=== PATIENT | female | born 1945 | race Caucasian/White ===

== ENCOUNTER → 2017-08-12 | Outpatient (CLI) | payer BC, MEDICARE ==
[~2017-08-12] MED LIST: HYDR-3874 PO; NITR-65 PO; NITR100C3 PO; OXYC-103 PO; PHEN-640 PO; PHEN200T27 PO; TMSL.4C PO
== END ==
LOC: PREOP 11:09
PROVIDERS: ATTEND Urology
DX: Z01.818 Encounter for other preprocedural examination (principal); N20.1 Calculus of ureter

== ENCOUNTER 2017-08-15 07:03 | Day surgery (SDC) | payer BC, MEDICARE ==
[~2017-08-15] VITALS: Ht 162.6 cm; Wt 65.8 kg
[~2017-08-15 07:03] MED LIST changes: -HYDR-3874 PO; -NITR-65 PO; -PHEN-640 PO
--- NOTE | 2017-08-15 07:03 | Progress Note-Pre Operative ---
Pre-Operative Progress Note H&P Reviewed The H&P was reviewed, patient examined and no changes noted. Date Seen by Provider: Aug 15, 2017 Time Seen by Provider: 07:03 Date H&P Reviewed: Aug 15, 2017 Time H&P Reviewed: 07:03 Pre-Operative Diagnosis: RT URETERAL STONE DENTON LARA MD Aug 15, 2017 7:03 am
[2017-08-15] MEDS ORDERED: fentaNYL INJECTION 100 MCG/2 ML AMP ONE (07:12)
[2017-08-15] MEDS ORDERED: MIDAZOLAM 2 MG/2 ML (VERSED) VIAL ONE (07:13)
[2017-08-15] MEDS ORDERED: D5W 50 ML IVPB SOLUTION 50 ML IV ONE (07:18)
[2017-08-15 07:20] VITALS: BP 136/70
[2017-08-15] MEDS: LACTATED RINGERS 1,000 ML IV PRN ×2 (07:20→08:10)
[2017-08-15] MEDS: cefTRIAXone 1 GM (ROCEPHIN) VIAL ONE (07:30)
[2017-08-15] MEDS ORDERED: SEVOFLURANE (ULTANE) 15 ML INHAL SOLN ONE (07:48)
[2017-08-15] MEDS ORDERED: LIDOCAINE PF 2% 5 ML (XYLOCAINE) VIAL ONE (07:48)
[2017-08-15] MEDS ORDERED: DEXAMETHASONE 10 MG/ML (DECADRON) 1 ML VIAL ONE (07:48)
[2017-08-15] MEDS ORDERED: proPOfol 200 MG/20 ML (DIPRIVAN) VIAL IV ONE (07:48)
[2017-08-15] MEDS ORDERED: ONDANSETRON 4 MG/2 ML (SDV) Z0FRAN ONE (07:48)
--- NOTE | 2017-08-15 07:56 | Progress Note-Post Operative ---
Post-Operative Progess Note Surgeon (s)/Crusher (s) Surgeon DENTON LARA MD Crusher: N/A Pre-Operative Diagnosis RT URETERAL STONE Post-Operative Diagnosis SAME Procedure & Operative Findings Date of Procedure 08/15/17 Procedure Performed/Findings RT URETEROSCOPY WITH STONE LITHOTRIPSY Anesthesia Type GENERAL Estimated Blood Loss Estimated blood loss (mL): N/A Specimens/Packing Specimens Removed N/A Packing: N/A DENTON LARA MD Aug 15, 2017 7:56 am
--- NOTE | 2017-08-15 07:58 | Discharge Inst-Urology ---
Discharge Inst-Urology Patient Instructions/Follow Up Plan Please make appointment to been seen in office in 2 weeks. Increase oral fluids for 48 hours and then as needed. Diet and Activity as tolerated. If questions or concerns contact your physician Or seek help at emergency department. DENTON LARA MD Aug 15, 2017 7:58 am
[2017-08-15] MEDS ORDERED: PHENYLEPHRINE 0.25% NASAL SPR (NEO-SYNEPHRINE) 15 ML NS ONE (08:00)
[2017-08-15] MEDS ORDERED: cefTRIAXone INJECTION 1,000 MG in D5W 50 ML IVPB SOLUTION 50 ML IV ONE (08:00)
[2017-08-15] MEDS ORDERED: ONDANSETRON 4 MG/2 ML (SDV) Z0FRAN IVP PRN (08:30)
[2017-08-15] MEDS ORDERED: morphine INJ 10 MG/ML 1ML (SYR OR VIAL) IVP PRN (08:30)
[2017-08-15 08:48] VITALS: BP 128/67
--- NOTE | 2017-08-15 09:08 | OPERATIVE REPORT ---
DATE OF SERVICE: 08/15/2017 PREOPERATIVE DIAGNOSIS: Right distal ureteral stone. POSTOPERATIVE DIAGNOSIS: Right distal ureteral stone. OPERATION PERFORMED: Right ureteroscopy with stone lithotripsy. SURGEON: Jonathan Lara MD ANESTHESIA: General. COMPLICATIONS: None. PROCEDURE: Under satisfactory general anesthesia, the patient in lithotomy position, genitalia were prepped and draped in the usual sterile fashion. Cystoscope was introduced in the bladder. Bladder was completely normal. There was some vaginal prolapse. There was a sluggish efflux on the right side. Using the foroblique a foroblique lens, I dilated the right ureteral orifice intramural portion to accommodate the 6.9-German semi-rigid ureteroscope, visualized the stone that was floating in the ureter. I went ahead using the power of 5 on the LithoClast completely fragmented the stone into very small fragments. I went beyond the stone proximally, there was no further calcifications. I removed the ureteroscope, reinserted the cystoscope and emptied the bladder. The patient tolerated the procedure and anesthesia well and was sent to recovery room in stable condition. Job ID: [id number] DocumentID: [id number] Dictated Date: 08/15/2017 08:00:44 Centrifugal Spinner Date: 08/15/2017 09:07:29 Dictated By: JONATHAN LARA MD
[2017-08-15 09:20] VITALS: BP 146/58
[2017-08-15] MEDS ORDERED: HYDR-3874 PO (09:45)
[2017-08-15] MEDS ORDERED: PHEN-640 PO (09:45)
[2017-08-15] MEDS ORDERED: NITR-65 PO (09:45)
[2017-08-15 09:50] VITALS: BP 146/58
--- NOTE | 2017-08-15 10:46 | Diagnostic Imaging Report ---
INDICATION: Lithotripsy. IMPRESSION: Fluoroscopy was provided during performance of a lithotripsy. 19 seconds of fluoroscopic time was utilized. No images were obtained. Dictated by: Dictated on workstation # [id number]
== END 2017-08-15 09:56 | disposition home or self-care (01) ==
LOC: SDC 07:03
PROVIDERS: ATTEND Urology
DX: N20.1 Calculus of ureter (principal); Z11.2 Encounter for screening for other bacterial diseases; I10 Essential (primary) hypertension; Z88.0 Allergy status to penicillin; Z79.899 Other long term (current) drug therapy
CPT/HCPCS: 87081

== ENCOUNTER 2019-02-16 11:53 | Emergency (ER) | payer BC, MEDICARE ==
[~2019-02-16] VITALS: Ht 162.6 cm; Wt 64.4 kg
[~2019-02-16 11:53] MED LIST changes: +HYDR-3870 PO; +NITR-65 PO; +PHEN-640 PO
--- OUTSIDE RECORDS SUMMARY | 2019-02-16 12:22 | XMS REPORT | Clinical Summary ---
Author Author [facility] Organization [facility] Address Unknown Phone Unavailable Care Team Providers Care Tax Examining Technician Name Role Phone Jessi Neal MD PCP Source Comments Some departments are not documenting in the electronic medical record. If you d o not see the information that you expected, contact Release of Information in [facility] [place] Information Management department at [phone] for further assistan ce in locating additional records.[facility] Allergies Comments Active Allergy Reactions Severity Noted Date Penicillins RASH Medium 09/21/2017 Medications End Date Status Medication Sig Dispensed Refills Start Date Active tamsulosin (FLOMAX) 0.4 Take 0.4 mg 0 mg capsule by mouth daily. Do not crush, chew or open capsules. Take 30 minutes following the same meal each day. Active hydroCHLOROthiazide Take 12.5 mg 0 (HYDRODIURIL) 12.5 mg by mouth capsule every morning. Active Problems Problem Noted Date Pulmonary nodule 09/22/2017 Social History Date Tobacco Use Types Packs/Day Years Used Former Smoker Smokeless Tobacco: Never Used Sex Assigned at Date Recorded Not on file Industry Job Start Date Occupation Not on file Not on file Not on file Travel End Travel History Travel Start No recent travel history available. Last Filed Vital Signs Reading Time Taken Comments Vital Sign 141/87 09/21/2017 1:22 PM EVP Blood Pressure 78 09/21/2017 1:22 PM EVP Pulse 36.7 C (98 F) 09/21/2017 1:22 PM EVP Temperature 16 09/21/2017 1:22 PM EVP Respiratory Rate 97% 09/21/2017 1:22 PM EVP ra Oxygen Saturation - - Inhaled Oxygen Concentration 66.7 kg (147 lb) 09/21/2017 1:22 PM EVP Weight 162.6 cm (5' 4") 09/21/2017 1:22 PM EVP Height 25.23 09/21/2017 1:22 PM EVP Body Mass Index Plan of Treatment Health Maintenance Due Date Last Done Comments HEPATITIS C SCREENING 1945 PHYSICAL (COMPREHENSIVE) 1954 EXAM DTAP/TDAP VACCINES (1 - 1965 Tdap) BREAST CANCER SCREENING 1987 COLORECTAL CANCER 1997 SCREENING SHINGLES RECOMBINANT 1997 VACCINE (1 of 2) OSTEOPOROSIS 2012 SCREENING/MONITORING PNEUMONIA (PCV13/PPSV23) 2012 VACCINES (1 of 2 - PCV13) INFLUENZA VACCINE 04/17/2019 Results Not on filefrom Last 3 Months Insurance Type Payer Benefit Subscriber ID Effective Phone Address Plan / Dates Group PPO BCBS RAPHAEL BCBS RAPHAEL xxxxxxxxx 2015- FED EMP Present PROGRAM Advance Directives Patient Supervisor Crack Off Explanation Type Date Recorded Advance Directive/DPOA
--- OUTSIDE RECORDS SUMMARY | 2019-02-16 12:22 | XMS REPORT | Continuity of Care Document ---
Author Organization Unknown Address Unknown Phone Unavailable Allergies Active Description Code Type Severity Reaction Onset Reported/Identified Relationship to Patient Clinical Status Yes Penicillins [id number] Drug Allergy Unknown HIVES 02/06/2014 Medications There is no data. 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 08/15/2017 DENTON LARA MD Ot Z88.0 ALLERGY STATUS TO PENICILLIN 08/15/2017 DENTON LARA MD Ot N20.1 CALCULUS OF URETER 08/15/2017 DENTON LARA MD Ot Z01.818 ENCOUNTER FOR OTHER PREPROCEDURAL EXAMIN 08/16/2017 DENTON LARA MD Ot I10 ESSENTIAL (PRIMARY) HYPERTENSION 08/16/2017 DENTON LARA MD Ot N20.1 CALCULUS OF URETER 08/16/2017 DENTON LARA MD Ot Z11.2 ENCOUNTER FOR SCREENING FOR OTHER BACTER 08/16/2017 DENTON LARA MD Ot 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 08/16/2017 DENTON LARA MD Ot Z88.0 ALLERGY STATUS TO PENICILLIN 08/16/2017 DENTON LARA MD Ot I10 ESSENTIAL (PRIMARY) HYPERTENSION 08/16/2017 DENTON LARA MD Ot N20.1 CALCULUS OF URETER 08/16/2017 DENTON LARA MD Ot Z11.2 ENCOUNTER FOR SCREENING FOR OTHER BACTER 08/16/2017 DENTON LARA MD Ot 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 08/16/2017 DENTON LARA MD Ot Z88.0 ALLERGY STATUS TO PENICILLIN 08/17/2017 DENTON LARA MD Ot N20.1 CALCULUS OF URETER 08/17/2017 DENTON LARA MD Ot Z01.818 ENCOUNTER FOR OTHER PREPROCEDURAL EXAMIN 08/17/2017 DENTON LARA MD Ot N20.1 CALCULUS OF URETER 08/17/2017 DENTON LARA MD Ot Z01.818 ENCOUNTER FOR OTHER PREPROCEDURAL EXAMIN 08/17/2017 DENTON LARA MD Ot I10 ESSENTIAL (PRIMARY) HYPERTENSION 08/17/2017 DENTON LARA MD Ot N20.1 CALCULUS OF URETER 08/17/2017 DENTON LARA MD Ot Z11.2 ENCOUNTER FOR SCREENING FOR OTHER BACTER 08/17/2017 DENTON LARA MD Ot 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 08/17/2017 DENTON LARA MD Ot Z88.0 ALLERGY STATUS TO PENICILLIN 08/17/2017 DENTON LARA MD Ot I10 ESSENTIAL (PRIMARY) HYPERTENSION 08/17/2017 DENTON LARA MD Ot N20.1 CALCULUS OF URETER 08/17/2017 DENTON LARA MD Ot Z11.2 ENCOUNTER FOR SCREENING FOR OTHER BACTER 08/17/2017 DENTON LARA MD Ot Z79.899 OTHER SHELTER (CURRENT) DRUG THERAPY 08/17/2017 DENTON LARA MD Ot Z88.0 ALLERGY STATUS TO PENICILLIN 08/21/2017 DENTON LARA MD Ot I10 ESSENTIAL (PRIMARY) HYPERTENSION 08/21/2017 DENTON LARA MD Ot N20.1 CALCULUS OF URETER 08/21/2017 DENTON LARA MD Ot Z11.2 ENCOUNTER FOR SCREENING FOR OTHER BACTER 08/21/2017 DENTON LARA MD Ot Z79.899 OTHER SHELTER (CURRENT) DRUG THERAPY 08/21/2017 DENTON LARA MD Ot Z88.0 ALLERGY STATUS TO PENICILLIN 04/19/2018 DENTON LARA MD Ot 592.1 CALCULUS OF URETER 04/19/2018 DENTON LARA MD Ot V72.84 EXAM PRE-OPERATIVE NOS 04/19/2018 DENTON LARA MD Ot N20.1 CALCULUS OF URETER 04/19/2018 DENTON LARA MD Ot Z01.818 ENCOUNTER FOR OTHER PREPROCEDURAL EXAMIN Procedures There is no data. Results Test Result Range Methicillin resistant Staphylococcus aureus (MRSA) screening culture - 08/15/17 07:15 Methicillin resistant Staphylococcus aureus (MRSA) screening culture NEG NRG Encounters ACCT No. Visit Date/Time Discharge Status Pt. Type Provider Facility Loc./Unit Complaint [id number] 08/15/2017 07:03:00 08/15/2017 09:56:00 DIS Outpatient DENTON LARA MD Via [facility] RIGHT URETERAL STONE [id number] 08/12/2017 11:09:00 08/12/2017 23:59:59 CLS Outpatient DENTON LARA MD Via [facility] PREOP RIGHT URETERAL STONE [id number] 02/06/2014 09:05:00 02/06/2014 13:10:00 DIS Outpatient DENTON LARA MD [facility] LEFT URETERAL STONE [id number] 02/04/2014 09:15:00 02/04/2014 23:59:59 CLS Outpatient DENTON LARA MD [facility] PRE[facility] LEFT URETERAL STONE
[2019-02-16 12:38] LABS: BASOPHILS # (AUTO) 0.1 10^3/uL (0.0-0.1); BASOPHILS % (AUTO) 1 % (0-10); EOSINOPHILS # (AUTO) 0.1 10^3/uL (0.0-0.3); EOSINOPHILS % (AUTO) 2 % (0-10); HEMATOCRIT 31 % (35-52); HEMOGLOBIN 10.7 G/DL (11.5-16.0); LYMPHOCYTES # (AUTO) 1.4 X 10^3 (1.0-4.0); LYMPHOCYTES % (AUTO) 28 % (12-44); MEAN CORPUSCULAR HEMOGLOBIN 31 PG (25-34); MEAN CORPUSCULAR HGB CONC 34 G/DL (32-36); MEAN CORPUSCULAR VOLUME 91 FL (80-99); MONOCYTES # (AUTO) 0.6 X 10^3 (0.0-1.0); MONOCYTES % (AUTO) 13 % (0-12); NEUTROPHILS # (AUTO) 2.8 X 10^3 (1.8-7.8); NEUTROPHILS % (AUTO) 55 % (42-75); PLATELET COUNT 253 10^3/uL (130-400); RED CELL DISTRIBUTION WIDTH 12.6 % (10.0-14.5); WHITE BLOOD COUNT 5.1 10^3/uL (4.3-11.0)
[2019-02-16 12:47] LABS: BILIRUBIN,URINE NEGATIVE (NEGATIVE); CLARITY,URINE CLEAR; COLOR,URINE YELLOW; GLUCOSE, URINE (UA) NEGATIVE (NEGATIVE); KETONES,URINE NEGATIVE (NEGATIVE); LEUKOCYTE ESTERASE ,URINE NEGATIVE (NEGATIVE); NITRITE,URINE NEGATIVE (NEGATIVE); PROTEIN,URINE NEGATIVE (NEGATIVE); UROBILINOGEN,URINE 0.2 MG/DL (NORMAL)
[2019-02-16 12:48] LABS: ALANINE AMINOTRANSFERASE 16 U/L (0-55); ALBUMIN 4.3 GM/DL (3.2-4.5); ALKALINE PHOSPHATASE 56 U/L (40-136); BILIRUBIN,TOTAL 0.6 MG/DL (0.1-1.0); BUN/CREATININE RATIO 31; CALCIUM 8.7 MG/DL (8.5-10.1); CARBON DIOXIDE 23 MMOL/L (21-32); CHLORIDE 103 MMOL/L (98-107); CREATININE SERUM 0.48 MG/DL (0.60-1.30); GFR ESTIMATED > 60; GLUCOSE 106 MG/DL (70-105); POTASSIUM 3.6 MMOL/L (3.6-5.0); SODIUM 140 MMOL/L (135-145); TOTAL PROTEIN 6.3 GM/DL (6.4-8.2)
[2019-02-16 13:20] VITALS: BP_SYST 110; BP_SYST 111; BP_SYST 129; BP_DIAS 51; BP_DIAS 53; BP_DIAS 56
--- NOTE | 2019-02-16 13:24 | ED Abdominal Pain ---
General Chief Complaint: Abdominal/GI Problems Stated Complaint: EPIGASTRIC PAIN; BLACK STOOL Nursing Triage Note: Patient sent over from urgent care for further evaluation. C/O black tarry stools and epigastric/abdominal pain since Tuesday. Sepsis Screen: No Definite Risk Source of Information: Patient Exam Limitations: No Limitations History of Present Illness Date Seen by Provider: Feb 16, 2019 Time Seen by Provider: 13:19 Initial Comments The patient is a 73-year-old white female who presents with complaints of epigastric pain and black tarry stools since Tuesday. She has no previous history of ulcer disease. She reports that at this time she has a bit of light headedness when she first stands up. There has been no vomiting of blood and no black diarrhea. We were able to find a hemoglobin from 2017 which was 14. Today's hemoglobin was 10.7. She is active and continues to work presently for the [employer]. 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 Timing/Duration: 3-4 Days Severity/Quality: Mild Location: Epigastric Radiation: No Radiation Activities at Onset: None Allergies and Home Medications Allergies Coded Allergies: Penicillins (Verified Allergy, Unknown, HIVES, 02/06/14) Home Medications Hydrocodone/Acetaminophen 1 Each Tablet, 1-2 EACH PO Q4H PRN for PAIN Prescribed by: DANTE PEDRAZA on 08/15/17944 Nitrofurantoin Monohyd/M-Cryst 100 Mg Capsule, 1 TAB PO BID WITH MEALS Prescribed by: DANTE PEDRAZA on 08/15/17944 Phenazopyridine HCl 200 Mg Tablet, 1 TAB PO TID Prescribed by: DANTE PEDRAZA on 08/15/17944 Patient Home Medication List Home Medication List Reviewed: Yes Review of Systems Review of Systems Constitutional: see HPI EENTM: No Symptoms Reported Respiratory: No Symptoms Reported Cardiovascular: No Symptoms Reported Gastrointestinal: See HPI Genitourinary: No Symptoms Reported Musculoskeletal: no symptoms reported Skin: no symptoms reported Psychiatric/Neurological: No Symptoms Reported Endocrine: No Symptoms Reported Hematologic/Lymphatic: No Symptoms Reported Past Bypkkwm-Evnkto-Czsdmf Hx Patient Social History Alcohol Use: Denies Use Recreational Drug Use: No Smoking Status: Never a Smoker 2nd Hand Smoke Exposure: No Recent Foreign Travel: No Contact w/Someone Who Travel: No Recent Infectious Disease Expo: No Recent Hopitalizations: No Physical Abuse: No Sexual Abuse: No Mistreated: No Fear: No Immunizations Up To Date Date of Pneumonia Vaccine: Jul 18, 2008 Seasonal Allergies Seasonal Allergies: No Past Medical History Surgeries: Yes (BLADDER SLING, Lithotripsy) Section, Gallbladder, Hysterectomy Respiratory: No Cardiac: No Neurological: No Genitourinary: Yes Kidney Stones Gastrointestinal: No Musculoskeletal: No Endocrine: No HEENT: No Cancer: No Psychosocial: No Integumentary: No Blood Disorders: No Physical Exam Vital Signs Vital Signs - First Documented 02/16/19 12:20 Temp 97.9 Pulse 70 Resp 20 B/P (MAP) 132/58 (82) Pulse Ox 98 O2 Delivery Room Air Capillary Refill : Less Than 3 Seconds Height/Weight/BMI Height: 5'4.00" Weight: 142lbs. 1.0oz. 64.615532gf; 24.9 BMI Method:Stated General Appearance: WD/WN, no apparent distress HEENT: PERRL/EOMI, normal ENT inspection, TMs normal, pharynx normal Neck: non-tender, full range of motion, supple, normal inspection Respiratory: chest non-tender, lungs clear, normal breath sounds, no respiratory distress, no accessory muscle use Cardiovascular: normal peripheral pulses, regular rate, rhythm, no edema, no gallop, no JVD, no murmur Gastrointestinal: normal bowel sounds, non tender, soft, no organomegaly, no pulsatile mass Extremities: normal range of motion, non-tender, normal inspection, no pedal edema, no calf tenderness, normal capillary refill, pelvis stable Pelvic: normal external exam, normal adnexa, no cerv. motion tender, no masses, discharge Neurologic/Psychiatric: community manager II-XII nml as tested, no motor/sensory deficits, alert, normal mood/affect, oriented x 3 Skin: normal color, warm/dry Lymphatic: no adenopathy Progress/Results/Core Measures Results/Orders Lab Results Laboratory Tests Test 02/16/19 12:20 Range/Units White Blood Count 5.1 4.3-11.0 10^3/uL Red Blood Count 3.45 L 4.35-5.85 10^6/uL Hemoglobin 10.7 L 11.5-16.0 G/DL Hematocrit 31 L 35-52 % Mean Corpuscular Volume 91 80-99 FL Mean Corpuscular Hemoglobin 31 25-34 PG Mean Corpuscular Hemoglobin Concent 34 32-36 G/DL Red Cell Distribution Width 12.6 10.0-14.5 % Platelet Count 253 130-400 10^3/uL Mean Platelet Volume 11.0 H 7.4-10.4 FL Neutrophils (%) (Auto) 55 42-75 % Lymphocytes (%) (Auto) 28 12-44 % Monocytes (%) (Auto) 13 H 0-12 % Eosinophils (%) (Auto) 2 0-10 % Basophils (%) (Auto) 1 0-10 % Neutrophils # (Auto) 2.8 1.8-7.8 X 10^3 Lymphocytes # (Auto) 1.4 1.0-4.0 X 10^3 Monocytes # (Auto) 0.6 0.0-1.0 X 10^3 Eosinophils # (Auto) 0.1 0.0-0.3 10^3/uL Basophils # (Auto) 0.1 0.0-0.1 10^3/uL Urine Color YELLOW Urine Clarity CLEAR Urine pH 7.0 5-9 Urine Specific Coulter 1.010 L 1.016-1.022 Urine Protein NEGATIVE NEGATIVE Urine Glucose (UA) NEGATIVE NEGATIVE Urine Ketones NEGATIVE NEGATIVE Urine Nitrite NEGATIVE NEGATIVE Urine Bilirubin NEGATIVE NEGATIVE Urine Urobilinogen 0.2 NORMAL MG/DL Urine Leukocyte Esterase NEGATIVE NEGATIVE Urine RBC (Auto) NEGATIVE NEGATIVE Urine RBC NONE /HPF Urine WBC 2-5 /HPF Urine Squamous Epithelial Cells 2-5 /HPF Urine Crystals NONE /LPF Urine Bacteria NONE /HPF Urine Casts NONE /LPF Urine Mucus NEGATIVE /LPF Urine Culture Indicated NO Sodium Level 140 135-145 MMOL/L Potassium Level 3.6 3.6-5.0 MMOL/L Chloride Level 103 98-107 MMOL/L Carbon Dioxide Level 23 21-32 MMOL/L Anion Gap 14 5-14 MMOL/L Blood Urea Nitrogen 15 7-18 MG/DL Creatinine 0.48 L 0.60-1.30 MG/DL Estimat Glomerular Filtration Rate > 60 BUN/Creatinine Ratio 31 Glucose Level 106 H 70-105 MG/DL Calcium Level 8.7 8.5-10.1 MG/DL Corrected Calcium 8.5 8.5-10.1 MG/DL Total Bilirubin 0.6 0.1-1.0 MG/DL Aspartate Amino Transf (AST/SGOT) 17 5-34 U/L Alanine Aminotransferase (ALT/SGPT) 16 0-55 U/L Alkaline Phosphatase 56 40-136 U/L Total Protein 6.3 L 6.4-8.2 GM/DL Albumin 4.3 3.2-4.5 GM/DL My Orders Orders - PIERCE ARNETT MD Cbc With Automated Diff (02/16/19 12:04) Comprehensive Metabolic Panel (02/16/19 12:04) Urinalysis (02/16/19 12:04) Ed Iv/Invasive Line Start (02/16/19 12:20) Vital Signs/I&O 02/16/19 12:20 Temp 97.9 Pulse 70 Resp 20 B/P (MAP) 132/58 (82) Pulse Ox 98 O2 Delivery Room Air Blood Pressure Mean: 82 Departure Communication (Admissions) Had a long discussion with the patient relative to the blood count and the high likelihood of a bleeding ulcer in the upper GI tract. She is reasonably sophisticated about medical issues. She is not eager to be admitted at this time. I discussed at some length symptoms and at least the relative drop in hemoglobin. The plan that she would prefer involves the initiation of PPIs. In addition she was cautioned that the symptoms would be more volume and frequency of stools and the increase in lightheadedness when she would stand up. If these were to occur she should return here immediately. Finally she should return here tomorrow for a repeat CBC. 1340 discussed the patient with Dr. Cardona by phone. She will follow the rules put forth in her discharge sequence. Impression Primary Impression: upper GI bleed Additional Impression: Upper GI bleed Disposition: 01 HOME, SELF-CARE Condition: Stable/Unchanged Departure-Patient Inst. Decision time for Depature: 13:42 Referrals: WALLY ASCENCIO MD (PCP/Family) Primary Care Physician Patient Instructions: No Instuctions Given Add. Discharge Instructions: All discharge instructions reviewed with patient and/or family. Voiced understanding. Discussed her case with Dr. Shayne Cardona who is the surgeon on-call this weekend. You will be given 2 medications for ulcer disease. These are to be started today. Return here tomorrow for a blood count. If your symptoms increase with more stools and increasing lightheadedness return to the [place] emergency room. Assuming that we make it to Tuesday call Dr. Cardona's office at [phone] and informed them that you have been instructed to see him Tuesday afternoon as a work-in Scripts Sucralfate (Carafate) 1 Gm/10 Ml Oral.susp 1 GM PO 3 times a day, #200 ML Prov: PIERCE ARNETT MD 02/16/19 Pantoprazole Sodium (Protonix) 40 Mg Tablet.dr 40 MG PO twice a day, #30 TAB Prov: PIERCE ARNETT MD 02/16/19 PIERCE ARNETT MD Feb 16, 2019 13:24
[2019-02-16] MEDS ORDERED: SUCR1ORA5 PO ×2 (13:46→14:08)
[2019-02-16] MEDS ORDERED: PANT40TA2 PO ×2 (13:46→14:08)
[2019-02-16 14:07] VITALS: BP 112/53
== END 2019-02-16 14:06 | disposition home or self-care (01) ==
LOC: EDUNIT# 11:53 → ER FS 11:55
DX: K92.2 Gastrointestinal hemorrhage, unspecified (principal); Z88.0 Allergy status to penicillin; Z90.710 Acquired absence of both cervix and uterus; Z87.442 Personal history of urinary calculi
CPT/HCPCS: 36415; 80053; 81000; 85025

== ENCOUNTER → 2019-02-17 | Outpatient (CLI) | payer BC, MEDICARE ==
[~2019-02-17] MED LIST changes: +PANT40TA2 PO; +SUCR1ORA5 PO
[2019-02-17 13:14] LABS: HEMATOCRIT 31 % (35-52); HEMOGLOBIN 10.6 G/DL (11.5-16.0); LYMPHOCYTES % (AUTO) 26 % (12-44); MEAN CORPUSCULAR HEMOGLOBIN 31 PG (25-34); MEAN CORPUSCULAR HGB CONC 34 G/DL (32-36); MEAN CORPUSCULAR VOLUME 92 FL (80-99); MEAN PLATELET VOLUME 10.6 FL (7.4-10.4); MONOCYTES % (AUTO) 14 % (0-12); NEUTROPHILS % (AUTO) 56 % (42-75); PLATELET COUNT 286 10^3/uL (130-400); RED CELL DISTRIBUTION WIDTH 12.8 % (10.0-14.5); WHITE BLOOD COUNT 5.7 10^3/uL (4.3-11.0)
[2019-02-17 13:15] LABS: BASOPHILS # (AUTO) 0.1 10^3/uL (0.0-0.1); BASOPHILS % (AUTO) 1 % (0-10); EOSINOPHILS # (AUTO) 0.2 10^3/uL (0.0-0.3); EOSINOPHILS % (AUTO) 3 % (0-10); LYMPHOCYTES # (AUTO) 1.5 X 10^3 (1.0-4.0); MONOCYTES # (AUTO) 0.8 X 10^3 (0.0-1.0); NEUTROPHILS # (AUTO) 3.2 X 10^3 (1.8-7.8)
== END ==
LOC: LAB FS 12:57
PROVIDERS: ATTEND Internal Medicine
DX: K92.2 Gastrointestinal hemorrhage, unspecified (principal)
CPT/HCPCS: 36415; 85025

== ENCOUNTER → 2019-02-23 | Outpatient (CLI) | payer BC, MEDICARE ==
--- NOTE | 2019-02-23 13:38 | Diagnostic Imaging Report ---
REASON FOR EXAM: HISTORY OF STONES COMPARISON: 02/06/2014. TECHNIQUE: Frontal supine views of the abdomen FINDINGS: The bowel gas pattern is nondistended. No large collection of free intraperitoneal air is seen. A bonrdjzl-cm-fxwsp amount of gas and fecal material are present in the colon. Possible focal calcification is seen in the inferior pole of the left kidney measuring approximately 3 mm. The osseous structures are age-appropriate. IMPRESSION: 1. Possible nonobstructing nephrolithiasis in the inferior pole of the left kidney measuring 3 mm. 2. Cjyqflnt-ws-oslni amount of stool in the colon, which can be seen with constipation. 3. No evidence of bowel obstruction or large collection of free intraperitoneal air. Dictated by: Dictated on workstation # [id number]
[2019-02-23 14:37] LABS: BUN/CREATININE RATIO 21; CALCIUM 9.3 MG/DL (8.5-10.1); CARBON DIOXIDE 27 MMOL/L (21-32); CHLORIDE 102 MMOL/L (98-107); CREATININE SERUM 0.72 MG/DL (0.60-1.30); GFR ESTIMATED > 60; GLUCOSE 140 MG/DL (70-105); POTASSIUM 3.4 MMOL/L (3.6-5.0); SODIUM 140 MMOL/L (135-145)
[2019-02-23 15:09] LABS: PHOSPHORUS 3.9 MG/DL (2.3-4.7); URIC ACID 3.5 MG/DL (2.6-7.2)
== END ==
LOC: LAB FS 13:12
PROVIDERS: ATTEND Urology
DX: Z87.442 Personal history of urinary calculi (principal)
CPT/HCPCS: 36415; 74018; 80048; 84100; 84550

== ENCOUNTER → 2019-03-20 | Outpatient (CLI) | payer BC, MEDICARE | LOC: PREOP 05:35 | PROVIDERS: ATTEND Surgery | DX: Z01.818 Encounter for other preprocedural examination (principal); K21.9 Gastro-esophageal reflux disease without esophagitis ==

== ENCOUNTER 2019-03-26 07:02 | Day surgery (SDC) | payer BC, MEDICARE ==
[2019-03-26] VITALS (7 sets, daily range): BP systolic 87–144; BP diastolic 49–77
[~2019-03-26] VITALS: Ht 162.6 cm; Wt 62.6 kg
[2019-03-26] MEDS ORDERED: LACTATED RINGERS 1,000 ML IV ONE (07:05)
[2019-03-26] MEDS ORDERED: PROPOFOL INJECTION 50 ML IV ONE (07:12)
[2019-03-26] MEDS ORDERED: MIDAZOLAM 2 MG/2 ML (VERSED) VIAL ONE (07:12)
[2019-03-26] MEDS ORDERED: LACTATED RINGERS 1,000 ML IV STA (07:13)
[2019-03-26] MEDS ORDERED: HURRICAINE EXT TUBE (BENZOCAINE) XX PRN (07:15)
[2019-03-26] MEDS ORDERED: HYDR25TA4 PO (07:27)
[2019-03-26] MEDS ORDERED: POTA99TA25 PO (07:27)
[2019-03-26] MEDS ORDERED: HURRICAINE EXT TUBE (BENZOCAINE) ONE (07:34)
--- NOTE | 2019-03-26 07:40 | Progress Note-Pre Operative ---
Pre-Operative Progress Note H&P Reviewed The H&P was reviewed, patient examined and no changes noted. Time Seen by Provider: 07:36 Date H&P Reviewed: Mar 26, 2019 Time H&P Reviewed: 07:37 Pre-Operative Diagnosis: Chronic Gastritis, Anemia, Melena KYLER ESTRADA DO Mar 26, 2019 07:40
--- NOTE | 2019-03-26 08:43 | Progress Note-Post Operative ---
Post-Operative Progess Note Surgeon (s)/Lockstitch Sleeve Setter (s) Surgeon KYLER ESTRADA DO Lockstitch Sleeve Setter: none Pre-Operative Diagnosis Chronic Gastritis, Anemia, Melena Post-Operative Diagnosis Gastritis Duodenitis Hiatal Hernia Diverticulosis Internal hemorrhoids Procedure & Operative Findings Date of Procedure 03/26/19 Procedure Performed/Findings EGD with bx colon Anesthesia Type IV sedation by SCALE OPERATOR Estimated Blood Loss Estimated blood loss (mL): scant Specimens/Packing Specimens Removed duodenal bx antral bx GE jxn bx KYLER ESTRADA DO Mar 26, 2019 08:43
--- NOTE | 2019-03-26 08:44 | Endoscopy Discharge Instruct ---
Endo Procedure/Findings Findings 1.: Gastritis 2.: Hiatal Hernia 3.: Diverticulosis 4.: Internal Hemorrhoids Discharge Instructions - Activity: You might feel a little sleepy until tomorrow. This is due to the medicine you received to relax you. Until tomorrow, you should: NOT drive a car, operate machinery or power tools. NOT drink any alcoholic beverages. NOT make any important decisions or sign importortant papers. Do not return to work until tomorrow, unless otherwise instructed. Resume previous activities tomorrow. Diet: Start by taking liquids. If you tolerate liquids, advance to solid food. make an appointment for one week. Notify Physician - If you experience excessive bleeding, unusual abdominal pain, fever, or chest pain, contact your doctor immediately. KYLER ESTRADA DO Mar 26, 2019 08:44
--- NOTE | 2019-03-26 14:22 | Anesthesia-General Post-Op ---
MAC Patient Condition Mental Status/LOC: Same as Preop Cardiovascular: Satisfactory Nausea/Vomiting: Absent Respiratory: Satisfactory Pain: Controlled Complications: Absent Post Op Complications Complications None Follow Up Care/Instructions Patient Instructions None needed. Anesthesiology Discharge Order Discharge Order Patient is doing well, no complaints, stable vital signs, no apparent adverse anesthesia problems. No complications reported per nursing. FRANSISCA JI CRNA Mar 26, 2019 14:22
--- NOTE | 2019-03-26 15:21 | OPERATIVE REPORT ---
DATE OF SERVICE: PREOPERATIVE DIAGNOSES: Melena, anemia, chronic gastritis. POSTOPERATIVE DIAGNOSES: 1. Gastritis. 2. Duodenitis. 3. Hiatal hernia. 4. Diverticulosis. 5. Internal hemorrhoids. PROCEDURES: 1. EGD with biopsy. 2. Colonoscopy. SURGEON: Dwayne Grant DO. JANITORIAL ACCOUNT MANAGER: None. ANESTHESIA: IV sedation by ORGANIC EXTRACTIONS TECHNICIAN. SPECIMEN: Biopsy from the duodenum, biopsy of the antrum and biopsy of the GE junction. BLOOD LOSS: Scant. FLUIDS: Per anesthesia. POSTOPERATIVE CONDITION: Stable. INDICATION FOR PROCEDURE: The patient is a 73-year-old female, who has been having some melena. She has a history of chronic gastritis and she also has some anemia and needed a workup. FINDINGS: The patient had some gastritis what looked like duodenitis as well and she had a small hiatal hernia. In the colon, she had some diverticula and some internal hemorrhoids. No other obvious pathology. PROCEDURE NOTE: After informed consent was obtained, the patient was brought to the endoscopy suite and placed in the left lateral decubitus position. She was administered IV sedation by the ORGANIC EXTRACTIONS TECHNICIAN, who then monitored her vitals the entire time, heart rate, blood pressure and pulse ox and the scope was inserted down the mouth through the esophagus into the stomach. Upon entering the stomach, pushed towards the pylorus at the antrum, saw some inflammation took a picture of this, pushing in the duodenum. Duodenum also looked a little bit inflamed, elected to do a biopsy of the duodenum and then pulled back and did a biopsy of the antrum. Retroflexed the scope, saw a small hiatal hernia and then pulled the scope up into the GE junction, took a biopsy of the GE junction. Suctioned out this air in the stomach and then pulled the scope up the esophagus and out the mouth. The patient tolerated the procedure. Switched gloves, switched cameras, went down below and started the colonoscopy. Pushed the scope in all the way about 150 cm, on the way and noted diverticula throughout the colon, able to get all the way to cecum, took a picture of appendiceal orifice and then able to get into the terminal ileum, took a picture and then slowly withdrew the scope insufflating to look circumferentially at the shaw, looking the cecum up the ascending colon to the hepatic flexure and then down the transverse colon to the splenic flexure, into the descending colon and then down in the sigmoid and finally into the rectum, retroflexed the rectal vault, saw some minimal internal hemorrhoids. No other obvious pathology. Scope was removed. The patient tolerated the procedure. She was recovered in endoscopy suite. Job ID: [id number] DocumentID: [id number] Dictated Date: 03/26/2019 08:47:24 Outbound Telemarketing Representative Date: 03/26/2019 15:19:55 Dictated By: DWAYNE GRANT DO
== END 2019-03-26 09:15 | disposition home or self-care (01) ==
LOC: ENDO 07:02
PROVIDERS: ATTEND Surgery
DX: K29.50 Unspecified chronic gastritis without bleeding (principal); K21.0 Gastro-esophageal reflux disease with esophagitis; I10 Essential (primary) hypertension; K92.1 Melena; D64.9 Anemia, unspecified; K29.80 Duodenitis without bleeding; K57.30 Diverticulosis of large intestine without perforation or abscess without bleeding; K44.9 Diaphragmatic hernia without obstruction or gangrene; Z87.891 Personal history of nicotine dependence; Z88.0 Allergy status to penicillin; Z80.9 Family history of malignant neoplasm, unspecified; Z90.710 Acquired absence of both cervix and uterus; Z79.899 Other long term (current) drug therapy

== ENCOUNTER → 2019-04-30 | Outpatient (CLI) | payer BC, MEDICARE ==
[~2019-04-30] MED LIST changes: +HYDR25TA4 PO; +POTA99TA25 PO
--- NOTE | 2019-04-30 09:49 | Diagnostic Imaging Report ---
Indication: Left rib injury from a fall 4 views of the left ribs do not show displaced fractures. There is no effusion or pneumothorax. IMPRESSION: Negative left ribs Dictated by: Dictated on workstation # [id number]
== END ==
LOC: RAD FS 09:31
PROVIDERS: ATTEND Nurse Practitioner Family
DX: S29.9XXA Unspecified injury of thorax, initial encounter (principal); W19.XXXA Unspecified fall, initial encounter
CPT/HCPCS: 71100

== ENCOUNTER → 2019-09-07 | Outpatient (CLI) | payer BC, MEDICARE ==
[2019-09-07 09:35] LABS: CARBON DIOXIDE 27 MMOL/L (21-32); CHLORIDE 104 MMOL/L (98-107); POTASSIUM 3.9 MMOL/L (3.6-5.0); SODIUM 143 MMOL/L (135-145)
[2019-09-07 09:36] LABS: ALANINE AMINOTRANSFERASE 31 U/L (0-55); ALBUMIN 4.3 GM/DL (3.2-4.5); ALKALINE PHOSPHATASE 72 U/L (40-136); BUN/CREATININE RATIO 29; CREATININE SERUM 0.62 MG/DL (0.60-1.30); GFR ESTIMATED > 60; GLUCOSE 111 MG/DL (70-105); TOTAL PROTEIN 6.5 GM/DL (6.4-8.2)
[2019-09-07 14:24] LABS: CHOLESTEROL 162 MG/DL (< 200); HDL CHOLESTEROL 57 MG/DL (40-60); TRIGLYCERIDES 84 MG/DL (<150); VLDL CHOLESTEROL 17 MG/DL (5-40)
== END ==
LOC: LAB FS 07:48
PROVIDERS: ATTEND Family Medicine
DX: Z00.00 Encounter for general adult medical examination without abnormal findings (principal)
CPT/HCPCS: 36415; 80053; 80061

== ENCOUNTER → 2020-02-04 | Outpatient (CLI) | payer BC, MEDICARE | LOC: LABNPT 14:33 | PROVIDERS: ATTEND Family Medicine | DX: N39.0 Urinary tract infection, site not specified (principal) | CPT/HCPCS: 87077; 87088 ==

== ENCOUNTER → 2020-04-07 | Outpatient (CLI) | payer BC, MEDICARE ==
--- NOTE | 2020-04-07 08:59 | Diagnostic Imaging Report ---
INDICATION: Kidney stones. TIME OF EXAM: 8:35 AM. COMPARISON: Correlation is made with the prior KUB from 02/23/2019. FINDINGS: A tiny calcific density overlies the lower pole of the left kidney, similar to the prior KUB. No definite right-sided renal calculi are detected. No definite ureteral calculi are identified. The bowel gas pattern is nonobstructed. There is moderate stool throughout the colon. There are surgical clips in the right upper quadrant. IMPRESSION: Unchanged tiny left lower pole renal calculus. No other significant abnormality is detected. Dictated by: Dictated on workstation # [id number]
== END ==
LOC: LAB FS 08:27
PROVIDERS: ATTEND Urology
DX: N20.0 Calculus of kidney (principal)
CPT/HCPCS: 74018

== ENCOUNTER → 2020-04-11 | Outpatient (CLI) | payer BC, MEDICARE ==
[2020-04-11 13:19] LABS: BACTERIA,URINE MODERATE /HPF; BILIRUBIN,URINE NEGATIVE (NEGATIVE); CLARITY,URINE SL CLOUDY; COLOR,URINE YELLOW; GLUCOSE, URINE (UA) NEGATIVE (NEGATIVE); KETONES,URINE NEGATIVE (NEGATIVE); LEUKOCYTE ESTERASE ,URINE 1+ (NEGATIVE); NITRITE,URINE NEGATIVE (NEGATIVE); PH,URINE 8.5 (5-9); PROTEIN,URINE NEGATIVE (NEGATIVE); WBC,URINE >100 /HPF
[2020-04-11 13:28] LABS: OCCULT BLOOD STOOL IMMUNOASSAY POSITIVE (NEGATIVE)
== END ==
LOC: LAB FS 08:44
PROVIDERS: ATTEND Family Medicine
DX: K92.1 Melena (principal); R30.0 Dysuria
CPT/HCPCS: 81000; 82274; 87077; 87088; 87186

== ENCOUNTER → 2020-04-14 | Outpatient (CLI) | payer BC, MEDICARE ==
[2020-04-14 18:09] LABS: HEMOGLOBIN 11.1 G/DL (11.5-16.0); MEAN CORPUSCULAR HEMOGLOBIN 31 PG (25-34); WHITE BLOOD COUNT 5.2 10^3/uL (4.3-11.0)
[2020-04-14 18:10] LABS: BASOPHILS # (AUTO) 0.1 10^3/uL (0.0-0.1); BASOPHILS % (AUTO) 1 % (0-10); CHLORIDE 104 MMOL/L (98-107); EOSINOPHILS # (AUTO) 0.1 10^3/uL (0.0-0.3); EOSINOPHILS % (AUTO) 2 % (0-10); HEMATOCRIT 32 % (35-52); LYMPHOCYTES # (AUTO) 1.5 X 10^3 (1.0-4.0); LYMPHOCYTES % (AUTO) 29 % (12-44); MEAN CORPUSCULAR HGB CONC 35 G/DL (32-36); MEAN CORPUSCULAR VOLUME 90 FL (80-99); MEAN PLATELET VOLUME 10.4 FL (7.4-10.4); MONOCYTES % (AUTO) 14 % (0-12); NEUTROPHILS # (AUTO) 2.8 X 10^3 (1.8-7.8); NEUTROPHILS % (AUTO) 54 % (42-75); PLATELET COUNT 325 10^3/uL (130-400); POTASSIUM 3.6 MMOL/L (3.6-5.0); SODIUM 141 MMOL/L (135-145)
[2020-04-14 18:11] LABS: ALANINE AMINOTRANSFERASE 19 U/L (0-55); ALBUMIN 4.2 GM/DL (3.2-4.5); ALKALINE PHOSPHATASE 64 U/L (40-136); BILIRUBIN,TOTAL 0.7 MG/DL (0.1-1.0); BUN/CREATININE RATIO 27; CALCIUM 9.4 MG/DL (8.5-10.1); CARBON DIOXIDE 25 MMOL/L (21-32); CREATININE SERUM 0.64 MG/DL (0.60-1.30); GFR ESTIMATED > 60; GLUCOSE 100 MG/DL (70-105)
[2020-04-15 14:09] LABS: CHOLESTEROL 135 MG/DL (< 200); HDL CHOLESTEROL 50 MG/DL (40-60); TRIGLYCERIDES 139 MG/DL (<150); VLDL CHOLESTEROL 28 MG/DL (5-40)
== END ==
LOC: LAB FS 17:14
PROVIDERS: ATTEND Family Medicine
DX: Z00.00 Encounter for general adult medical examination without abnormal findings (principal); I10 Essential (primary) hypertension; Z86.2 Personal history of diseases of the blood and blood-forming organs and certain disorders involving the immune mechanism
CPT/HCPCS: 36415; 80053; 80061; 85025

== ENCOUNTER → 2020-11-08 | Outpatient (CLI) | payer BC, MEDICARE ==
[2020-11-08 09:43] LABS: BASOPHILS # (AUTO) 0.1 10^3/uL (0.0-0.1); BASOPHILS % (AUTO) 1 % (0-10); EOSINOPHILS # (AUTO) 0.1 10^3/uL (0.0-0.3); EOSINOPHILS % (AUTO) 2 % (0-10); HEMATOCRIT 43 % (35-52); HEMOGLOBIN 14.7 G/DL (11.5-16.0); LYMPHOCYTES # (AUTO) 1.4 X 10^3 (1.0-4.0); LYMPHOCYTES % (AUTO) 30 % (12-44); MEAN CORPUSCULAR HEMOGLOBIN 31 PG (25-34); MEAN CORPUSCULAR HGB CONC 35 G/DL (32-36); MEAN CORPUSCULAR VOLUME 89 FL (80-99); MEAN PLATELET VOLUME 10.5 FL (7.4-10.4); MONOCYTES # (AUTO) 0.7 X 10^3 (0.0-1.0); MONOCYTES % (AUTO) 15 % (0-12); NEUTROPHILS # (AUTO) 2.2 X 10^3 (1.8-7.8); NEUTROPHILS % (AUTO) 50 % (42-75); PLATELET COUNT 281 10^3/uL (130-400); WHITE BLOOD COUNT 4.4 10^3/uL (4.3-11.0)
[2020-11-08 10:07] LABS: ALANINE AMINOTRANSFERASE 25 U/L (0-55); ALBUMIN 4.4 GM/DL (3.2-4.5); ALKALINE PHOSPHATASE 74 U/L (40-136); BILIRUBIN,TOTAL 0.7 MG/DL (0.1-1.0); BUN/CREATININE RATIO 29; CALCIUM 9.4 MG/DL (8.5-10.1); CARBON DIOXIDE 24 MMOL/L (21-32); CHLORIDE 105 MMOL/L (98-107); CREATININE SERUM 0.55 MG/DL (0.60-1.30); GFR ESTIMATED > 60; GLUCOSE 107 MG/DL (70-105); POTASSIUM 4.2 MMOL/L (3.6-5.0); SODIUM 138 MMOL/L (135-145); TOTAL PROTEIN 6.3 GM/DL (6.4-8.2)
[2020-11-08 14:39] LABS: CHOLESTEROL 154 MG/DL (< 200); HDL CHOLESTEROL 56 MG/DL (40-60); TRIGLYCERIDES 112 MG/DL (<150); VLDL CHOLESTEROL 22 MG/DL (5-40)
== END ==
LOC: LAB FS 09:24
PROVIDERS: ATTEND Family Medicine
DX: I10 Essential (primary) hypertension (principal); D64.9 Anemia, unspecified
CPT/HCPCS: 36415; 80053; 80061; 82140; 82340; 82507; 82570; 83735; 83945; 83986; 84105; 84133; 84300; 84392; 84560; 85025

== ENCOUNTER → 2020-11-08 | Outpatient (CLI) | payer BC, MEDICARE ==
--- NOTE | 2020-11-08 09:47 | Diagnostic Imaging Report ---
INDICATION: History of stones. TECHNIQUE: Single supine view of the abdomen 9:29 AM CORRELATION STUDY: 04/07/2020 FINDINGS: Costectomy clips in the right upper quadrant. Tiny calcification projecting over the inferior pole of the left kidney is again demonstrated. Otherwise, no additional calcification in the renal silhouettes and/or expected course of either ureter. Bowel gas pattern has a nonobstructive appearance. There is mild/moderate stool present. IMPRESSION: 1. Tiny nonobstructing calcification projecting over the inferior pole of the left kidney. Dictated by: Dictated on workstation # [id number]
== END ==
LOC: LAB FS 09:17
PROVIDERS: ATTEND Urology
DX: Z87.442 Personal history of urinary calculi (principal)
CPT/HCPCS: 74018

== ENCOUNTER → 2020-12-08 | Outpatient (CLI) | payer BC, MEDICARE | LOC: LAB FS 09:13 | PROVIDERS: ATTEND Urology | DX: Z87.442 Personal history of urinary calculi (principal) | CPT/HCPCS: 36415; 82140; 82340; 82507; 82570; 83735; 83945; 83986; 84105; 84133; 84300; 84392; 84560 ==

== ENCOUNTER → 2021-10-13 | Outpatient (CLI) | payer BC, MEDICARE ==
--- NOTE | 2021-10-13 13:37 | Diagnostic Imaging Report ---
INDICATION: Kidney stones. TIME OF EXAM: 1:24 PM. COMPARISON: Correlation is made with the prior abdominal radiograph from 11/08/2020. FINDINGS: The bowel gas pattern is unremarkable. A tiny calcific density overlies the lower pole of the left kidney. No other suspicious calcifications are seen. There are surgical clips in the right upper quadrant. Calcifications in the pelvis likely represent phleboliths. IMPRESSION: Stable KUB when compared with the examination of 1 year earlier. Dictated by: Dictated on workstation # [id number]
== END ==
LOC: RAD FS 13:12
PROVIDERS: ATTEND Urology
DX: N20.0 Calculus of kidney (principal)
CPT/HCPCS: 74018

== ENCOUNTER → 2021-10-19 | Outpatient (CLI) | payer BC, MEDICARE | LOC: LAB FS 09:07 | PROVIDERS: ATTEND Urology | DX: Z87.442 Personal history of urinary calculi (principal) | CPT/HCPCS: 82140; 82340; 82507; 82570; 83735; 83945; 83986; 84105; 84133; 84300; 84392; 84560 ==

== ENCOUNTER → 2021-10-23 | Outpatient (CLI) | payer BC, MEDICARE ==
[2021-10-23 07:28] LABS: BASOPHILS % (AUTO) 1 % (0-10); EOSINOPHILS # (AUTO) 0.1 10^3/uL (0.0-0.3); EOSINOPHILS % (AUTO) 3 % (0-10); HEMATOCRIT 41 % (35-52); HEMOGLOBIN 13.9 g/dL (11.5-16.0); LYMPHOCYTES # (AUTO) 1.2 10^3/uL (1.0-4.0); LYMPHOCYTES % (AUTO) 27 % (12-44); MEAN CORPUSCULAR HEMOGLOBIN 30 pg (25-34); MEAN CORPUSCULAR HGB CONC 34 g/dL (32-36); MEAN CORPUSCULAR VOLUME 89 fL (80-99); MEAN PLATELET VOLUME 10.5 fL (9.0-12.2); MONOCYTES # (AUTO) 0.8 10^3/uL (0.0-1.0); MONOCYTES % (AUTO) 18 % (0-12); NEUTROPHILS # (AUTO) 2.2 10^3/uL (1.8-7.8); NEUTROPHILS % (AUTO) 51 % (42-75); PLATELET COUNT 224 10^3/uL (130-400); WHITE BLOOD COUNT 4.3 10^3/uL (4.3-11.0)
[2021-10-23 09:30] LABS: BILIRUBIN,TOTAL 0.6 MG/DL (0.1-1.0); CREATININE SERUM 0.62 MG/DL (0.60-1.30); POTASSIUM 4.7 MMOL/L (3.6-5.0)
[2021-10-23 09:31] LABS: ALBUMIN 4.4 GM/DL (3.2-4.5); TOTAL PROTEIN 6.2 GM/DL (6.4-8.2)
[2021-10-23 09:54] LABS: ATYPICAL LYMPHOCYTES 2 %; BAND NEUTROPHILS 1 %; BASOPHILS % (MANUAL) 2 %; EOSINOPHILS % (MANUAL) 1 %; LYMPHOCYTES % (MANUAL) 26 %; MONOCYTES % (MANUAL) 7 %; NEUTROPHILS % (MANUAL) 55 %; REACTIVE LYMPHOCYTES 6 %
[2021-10-23 09:55] LABS: PLATELET ESTIMATE NORMAL; RBC MORPH NORMAL; TOXIC GRANULATION/VACUOLAZATIO 3+
== END ==
LOC: LAB FS 07:07
PROVIDERS: ATTEND Family Medicine
DX: I10 Essential (primary) hypertension (principal); D64.9 Anemia, unspecified
CPT/HCPCS: 36415; 80053; 80061; 85007; 85027

== ENCOUNTER → 2021-11-02 | Outpatient (CLI) | payer BC, MEDICARE ==
--- NOTE | 2021-11-02 10:41 | Diagnostic Imaging Report ---
INDICATION: Left shoulder pain. FINDINGS: 3 views. Glenohumeral joint and AC joint are in good alignment. Articulating surfaces are smooth. Joint spaces are well-maintained. No fractures. No hypertrophic bony changes. No soft tissue calcification. IMPRESSION: Normal left shoulder. Dictated by: Dictated on workstation # [id number]
== END ==
LOC: RAD FS 08:30
PROVIDERS: ATTEND Family Medicine
DX: M25.512 Pain in left shoulder (principal)
CPT/HCPCS: 73030

== ENCOUNTER → 2021-11-05 | Outpatient (CLI) | payer BC, MEDICARE | LOC: ORTHO 16:30 → MERGE 16:52 | PROVIDERS: ATTEND Orthopaedic Surgery | DX: M75.52 Bursitis of left shoulder (principal) | CPT/HCPCS: 20610 ==

== ENCOUNTER 2021-11-26 09:43 | Emergency (ER) | payer BC, MEDICARE ==
[~2021-11-26] VITALS: Ht 162.5 cm; Wt 66.6 kg
--- NOTE | 2021-11-26 09:49 | ED Back Pain ---
General Chief Complaint: Back Problems Stated Complaint: LT LEG/BACK PAIN History of Present Illness Date Seen by Provider: November 26, 2021 Time Seen by Provider: 09:40 Initial Comments 76-year-old female is here with complaints of left-sided lower paraspinal back pain which began yesterday night. Patient denies dysuria, fever, nausea and vomiting, headache, chest pain, shortness of breath. Allergies and Home Medications Allergies Coded Allergies: Penicillins (Verified Allergy, Unknown, HIVES, 02/06/14) Patient Home Medication List Home Medication List Reviewed: Yes Hydrochlorothiazide (Hydrochlorothiazide) 25 Mg Tablet, 25 MG PO DAILY, (Re ported) Entered as Reported by: JAYLON ARROYO on 03/26/19726 Potassium Gluconate (Potassium) 600 Mg Tablet, 600 MG PO DAILY, (Reported) Entered as Reported by: JAYLON ARROYO on 03/26/19726 Review of Systems Constitutional: no symptoms reported EENTM: no symptoms reported Respiratory: no symptoms reported Cardiovascular: no symptoms reported Gastrointestinal: no symptoms reported Musculoskeletal: back pain Skin: no symptoms reported Psychiatric/Neurological: No Symptoms Reported Past Dlcxile-Jdjhqw-Mwmwxx Hx Seasonal Allergies Seasonal Allergies: No Past Medical History Surgeries: Yes (BLADDER SLING, Lithotripsy) Section, Gallbladder, Hysterectomy Respiratory: No Cardiac: No Neurological: No Genitourinary: Yes Kidney Stones Gastrointestinal: No Musculoskeletal: No Endocrine: No HEENT: No Cancer: No Psychosocial: No Integumentary: No Blood Disorders: No Physical Exam Vital Signs Vital Signs - First Documented 11/26/21 09:50 Temp 36.3 Pulse 67 Resp 16 B/P (MAP) 132/62 (85) Pulse Ox 95 O2 Delivery Room Air Capillary Refill : Height, Weight, BMI Height: 5'4.00" Weight: 138lbs. 1.0oz. 62.808565lm; 23.7 BMI Method:Stated General Appearance: No Apparent Distress HEENT: PERRL/EOMI Neck: Full Range of Motion Cardiovascular: Regular Rate, Rhythm Respiratory: Chest Non Tender, Lungs Clear, Normal Breath Sounds Gastrointestinal: Normal Bowel Sounds, Non Tender, Soft Back: Normal Inspection, No Vertebral Tenderness, CVA Tenderness (L), Other (Straight leg test negative) Extremity: Normal Inspection, Normal Range of Motion Neurologic/Psychiatric: Alert, Oriented x3, No Motor/Sensory Deficits, Normal Mood/Affect Skin: Normal Color Progress/Results/Core Measures Results/Orders Lab Results Laboratory Tests Test 11/26/21 10:20 Range/Units Urine Color YELLOW Urine Clarity TURBID Urine pH 6.0 5-9 Urine Specific [place] 1.025 H 1.016-1.022 Urine Protein NEGATIVE NEGATIVE Urine Glucose (UA) NEGATIVE NEGATIVE Urine Ketones TRACE H NEGATIVE Urine Nitrite POSITIVE H NEGATIVE Urine Bilirubin NEGATIVE NEGATIVE Urine Urobilinogen 1.0 < = 1.0 MG/DL Urine Leukocyte Esterase 1+ H NEGATIVE Urine RBC (Auto) TRACE-I H NEGATIVE Urine RBC 2-5 H /HPF Urine WBC 50-100 H /HPF Urine Squamous Epithelial Cells 0-2 /HPF Urine Crystals NONE /LPF Urine Bacteria LARGE H /HPF Urine Casts NONE /LPF Urine Mucus MODERATE H /LPF Urine Culture Indicated YES My Orders Orders - JUAN JEAN-BAPTISTE MD Ua Culture If Indicated (11/26/21 09:55) Lumbar Spine 4 View Or More (11/26/21 09:56) Ketorolac Injection (Toradol Injection) (11/26/21 10:00) Urine Culture (11/26/21 10:20) Medications Given in ED Current Medications Medications Dose Ordered Sig/Micah Route Start Time Stop Time Status Last Admin Dose Admin Ketorolac Tromethamine 30 mg ONCE ONCE IM 11/26/21 10:00 11/26/21 10:01 DC 11/26/21 10:22 30 MG Vital Signs/I&O 11/26/21 09:50 Temp 36.3 Pulse 67 Resp 16 B/P (MAP) 132/62 (85) Pulse Ox 95 O2 Delivery Room Air Progress Progress Note : Progress Note 1. LEFT BACK PAIN: PYELONEPHRITIS - Initially thought back pain/ nerve impingement and denied dysuria, so ordered XR to assess lumbar spine. UA positive with CVA tenderness so clinical p yelonephritis diagnosed. - XR LUMBAR SPINE: mild spondylitic changes in the lumbar spine - UA is positive for leukocyte Estrace and nitrites, as well as bacteria and white cells. -Cefpodoxime for 7 days twice daily, 200mg - F/u with PCP in 5 to 7 days -The patient was seen in the ED, and treated appropriately to presentation at a specific point in time. Patient is informed that there is a possibility that disease and illness can evolve and change in acuity rapidly or slowly after patient is discharged from the ER. Precautionary advice given to the patient for immediate return to ER if symptoms worsen or do not resolve, and to seek e mergency care sooner rather than later. Pt also advised on the importance of PCP follow up and compliance with management and follow up plan with PCP and/or specialist, as this is part of the management plan. Pt verbally expressed understanding. Diagnostic Imaging Diagonstic Imaging: Xray Plain Films/CT/US/NM/MRI: other (spine) Comments [facility] [place], [place] NAME: MAGDIEL OTTO [facility] REC#: [id number] PT STATUS: REG ER : 1945 PHYSICIAN: JUAN JEAN-BAPTISTE MD ADMIT DATE: 11/26/21/ER FS Draft Date of Exam:11/26/21 LUMBAR SPINE 4 VIEW OR MORE EXAM: LUMBAR SPINE 4 VIEW OR MORE INDICATION: Low back pain. COMPARISON: None. FINDINGS: Normal alignment. Vertebral body heights preserved. Mild scattered degenerative endplate changes. No fractures or pars defects identified. Visualized pelvis is intact. Cholecystectomy clips. IMPRESSION: Mild spondylotic changes in the lumbar spine. No acute radiographic findings. Dictated on workstation # [id number] Dict: 11/26/21 1025 Trans: 11/26/21 1028 [facility] [id number] Interpreted by: GASTON KONG MD Electronically signed by: Departure Impression Primary Impression: Pyelonephritis Disposition: 01 HOME, SELF-CARE Condition: Stable Departure-Patient Inst. Referrals: WALLY ASCENCIO MD (PCP) Primary Care Physician Patient Instructions: Urinary Tract Infection, Adult ED, Kidney Infection (DC) Add. Discharge Instructions: Cefpodoxime 200 mg every 12 hours for 7 days Follow-up with PCP within 5 to 7 days NSAIDs or Tylenol as needed pain Drink at least 8 cups of water a day. Return to ED if symptoms do not improve or worsen All discharge instructions reviewed with patient and/or family. Voiced understanding. Scripts Cefpodoxime Proxetil (Cefpodoxime Proxetil) 200 Mg Tablet 200 MG PO Q12H for 7 Days, #14 TAB Prov: JUAN JEAN-BAPTISTE MD 11/26/21 JUAN JEAN-BAPTISTE MD November 26, 2021 09:49
[2021-11-26] MEDS ORDERED: KETOROLAC 30 MG/ML VIAL IM ONE (10:00)
[2021-11-26 10:28] LABS: BILIRUBIN,URINE NEGATIVE (NEGATIVE); CLARITY,URINE TURBID; COLOR,URINE YELLOW; GLUCOSE, URINE (UA) NEGATIVE (NEGATIVE); KETONES,URINE TRACE (NEGATIVE); LEUKOCYTE ESTERASE ,URINE 1+ (NEGATIVE); NITRITE,URINE POSITIVE (NEGATIVE); PROTEIN,URINE NEGATIVE (NEGATIVE)
--- NOTE | 2021-11-26 10:29 | Diagnostic Imaging Report ---
EXAM: LUMBAR SPINE 4 VIEW OR MORE INDICATION: Low back pain. COMPARISON: None. FINDINGS: Normal alignment. Vertebral body heights preserved. Mild scattered degenerative endplate changes. No fractures or pars defects identified. Visualized pelvis is intact. Cholecystectomy clips. IMPRESSION: Mild spondylotic changes in the lumbar spine. No acute radiographic findings. Dictated by: Dictated on workstation # [id number]
[2021-11-26 10:39] LABS: BACTERIA,URINE LARGE /HPF; SQUAMOUS EPITHELIAL CELL,UR 0-2 /HPF; WBC,URINE 50-100 /HPF
[2021-11-26] MEDS ORDERED: CEFP200T2 PO (11:14)
[2021-11-26 11:17] VITALS: BP 136/72
== END 2021-11-26 11:20 | disposition home or self-care (01) ==
LOC: EDUNIT# 09:43 → ER FS 09:46
DX: N12 Tubulo-interstitial nephritis, not specified as acute or chronic (principal); D72.829 Elevated white blood cell count, unspecified
CPT/HCPCS: 72110; 81000; 87077; 87088; 87186

== ENCOUNTER 2022-03-24 06:10 | Outpatient (CLI) | payer BC, MEDICARE ==
[~2022-03-24] VITALS: Ht 163.8 cm; Wt 68.5 kg
[~2022-03-24 06:10] MED LIST changes: +CEFP200T2 PO
[2022-03-24] MEDS ORDERED: OMEP20CA18 PO (10:42)
[2022-03-24] MEDS ORDERED: TR1C15 TP (10:42)
== END 2022-03-24 10:49 | disposition home or self-care (01) ==
LOC: PREOP 06:10
PROVIDERS: ATTEND Surgery
DX: Z01.818 Encounter for other preprocedural examination (principal)

== ENCOUNTER 2022-04-05 07:31 | Day surgery (SDC) | payer BC, MEDICARE ==
[~2022-04-05] VITALS: Ht 163.8 cm; Wt 68.5 kg
[~2022-04-05 07:31] MED LIST changes: +OMEP20CA18 PO; +TR1C15 TP
[2022-04-05] MEDS ORDERED: LACTATED RINGERS 1,000 ML IV STA (07:34)
[2022-04-05 07:43] VITALS: BP 157/79
[2022-04-05] MEDS ORDERED: HURRICAINE EXT TUBE (BENZOCAINE) XX PRN (07:45)
[2022-04-05] MEDS ORDERED: proPOfol 200 MG/20 ML (DIPRIVAN) VIAL IV ONE (08:14)
--- NOTE | 2022-04-05 08:39 | Progress Note-Pre Operative ---
Pre-Operative Progress Note Date of Available H&P: Mar 16, 2022 Date H&P Reviewed: Apr 05, 2022 Time H&P Reviewed: 08:33 History & Physical: H&P Reviewed, Patient Examed, No changes noted Pre-Operative Diagnosis: chronic gastritis KYLER ESTRADA DO Apr 05, 2022 08:39
[2022-04-05 08:55] VITALS: BP 116/57
--- NOTE | 2022-04-05 08:57 | Progress Note-Post Operative ---
Post-Operative Progess Note Surgeon (s)/Oracle Adf Developer (s) Surgeon KYLER ESTRADA DO Oracle Adf Developer: none Pre-Operative Diagnosis chronic gastritis Post-Operative Diagnosis ??Gastric ulcer Sliding hiatal hernia Procedure & Operative Findings Date of Procedure 04/05/22 Procedure Performed/Findings EGD with biopsy PROCEDURE NOTE: After informed consent was obtained, the patient was brought to the endoscopy suite, placed in bed in left lateral decubitus position. She was administered IV sedation by the EHS SPECIALIST who then monitored vitals the entire time, heart rate, blood pressure and pulse ox and the scope was inserted down the mouth through the esophagus into the stomach. On the way down, noted some mild esophagitis, took a picture, pushed into the stomach, pushed past the antrum into the duodenum. Duodenum looked good. Pulled back and noted what looked like one, possibly more ulcers and did a biopsy of the antrum. Then retroflexed the scope, did not really see any inflammation in the body of the stomach. I did see what looked like a sliding hiatal hernia; could see GE junction in the stomach and took a picture of this. Next, pulled the scope into the GE junction and then did a biopsy of the GE junction. Pushed the scope back into the stomach, suctioned all the air out of the stomach. At this point pulled the scope up the esophagus and out the mouth. The patient tolerated the procedure, and she recovered in endoscopy suite. Anesthesia Type IV sedation by EHS SPECIALIST Estimated Blood Loss Estimated blood loss (mL): scant Specimens/Packing Specimens Removed antral bx (possibly ulcer) GE jxn bx KYLER ESTRADA DO Apr 05, 2022 08:57
--- NOTE | 2022-04-05 08:58 | Endoscopy Discharge Instruct ---
Endo Procedure/Findings Findings 1.: Gastric Ulcer 2.: Hiatal Hernia Discharge Instructions - Activity: You might feel a little sleepy until tomorrow. This is due to the medicine you received to relax you. Until tomorrow, you should: NOT drive a car, operate machinery or power tools. NOT drink any alcoholic beverages. NOT make any important decisions or sign importortant papers. Do not return to work until tomorrow, unless otherwise instructed. Resume previous activities tomorrow. Diet: Start by taking liquids. If you tolerate liquids, advance to solid food. 1.: EGD in 1 year Notify Physician - If you experience excessive bleeding, unusual abdominal pain, fever, or chest pain, contact your doctor immediately. KYLER ESTRADA DO Apr 05, 2022 08:58
[2022-04-05 09:00] VITALS: BP 96/51
[2022-04-05 09:24] VITALS: BP 132/81
--- NOTE | 2022-04-05 11:35 | Anesthesia-General Post-Op ---
MAC Patient Condition Mental Status/LOC: Same as Preop Cardiovascular: Satisfactory Nausea/Vomiting: Absent Respiratory: Satisfactory Pain: Controlled Complications: Absent Post Op Complications Complications None Follow Up Care/Instructions Patient Instructions None needed. Anesthesiology Discharge Order Discharge Order Patient is doing well, no complaints, stable vital signs, no apparent adverse anesthesia problems. No complications reported per nursing. EDITH CALDERON CRNA Apr 05, 2022 11:34
== END 2022-04-05 09:30 | disposition home or self-care (01) ==
LOC: ENDO 07:31
PROVIDERS: ATTEND Surgery
DX: K21.00 Gastro-esophageal reflux disease with esophagitis, without bleeding (principal); K31.89 Other diseases of stomach and duodenum; K44.9 Diaphragmatic hernia without obstruction or gangrene; K29.50 Unspecified chronic gastritis without bleeding

== ENCOUNTER → 2022-07-30 | Outpatient (CLI) | payer BC, MEDICARE ==
--- NOTE | 2022-07-30 17:15 | Diagnostic Imaging Report ---
Indication: Stone. Compared: 10/13/2021 Findings: Faint linear calcification projects over the lower pole left kidney unchanged. Some pelvic phleboliths chronic. No suspected radiopaque ureteral stone. Bowel gas pattern nonobstructive and unremarkable. Impression: Stable abdominal radiograph. No change from prior. Dictated by: Dictated on workstation # [id number]
== END ==
LOC: RAD FS 11:17
PROVIDERS: ATTEND Urology
DX: Z87.442 Personal history of urinary calculi (principal)
CPT/HCPCS: 74018

== ENCOUNTER → 2023-03-15 | Outpatient (CLI) | payer BC, MEDICARE | LOC: GIR 15:54 | PROVIDERS: ATTEND Registered Nurse Emergency | DX: R30.0 Dysuria (principal) | CPT/HCPCS: 87088 ==

== ENCOUNTER → 2023-06-08 | Outpatient (CLI) | payer BC, MEDICARE | LOC: LAB FS 11:35 | PROVIDERS: ATTEND Registered Nurse Emergency | DX: R30.0 Dysuria (principal) | CPT/HCPCS: 87088 ==